=== PATIENT | female | born 1950 | race Caucasian/White ===

== ENCOUNTER 2020-11-15 16:44 | Emergency (ER) | payer MEDICARE, OTHER ==
[2020-11-15 18:41] LABS: HEMOGLOBIN 13.5 gm/dl (12.3-15.3); RED BLOOD COUNT 4.41 M/UL (4.00-5.10); WHITE BLOOD COUNT 4.6 K/UL (4.5-11.0)
[2020-11-15 18:56] LABS: BUN/CREATININE RATIO 15 (0-10)
[2020-11-15] MEDS ORDERED: KEFLEX750 MG PO (19:38)
== END 2020-11-15 19:57 | disposition home or self-care (01) ==
LOC: ER1 16:44
PROVIDERS: Family Medicine
DX: N39.0 Urinary tract infection, site not specified (principal); R41.3 Other amnesia; I10 Essential (primary) hypertension; E11.9 Type 2 diabetes mellitus without complications; Z86.73 Personal history of transient ischemic attack (TIA), and cerebral infarction without residual deficits
CPT/HCPCS: 36415; 70450; 80053; 81001; 82550; 82553; 83690; 84484; 85025; 93005; 99284

== ENCOUNTER 2020-11-19 17:45 | Emergency (ER) | payer MEDICARE, OTHER ==
[~2020-11-19 17:45] MED LIST: KEFLEX750 MG PO
[2020-11-19 19:21] LABS: HEMOGLOBIN 14.5 gm/dl (12.3-15.3); RED BLOOD COUNT 4.61 M/UL (4.00-5.10); WHITE BLOOD COUNT 5.8 K/UL (4.5-11.0)
== END 2020-11-19 20:23 | disposition home or self-care (01) ==
LOC: ER1 17:45
PROVIDERS: Preventive Medicine Occupational Medicine
DX: I63.9 Cerebral infarction, unspecified (principal); I10 Essential (primary) hypertension; E11.9 Type 2 diabetes mellitus without complications; Z20.822 Contact with and (suspected) exposure to COVID-19
CPT/HCPCS: 0240U; 80053; 85025; 99284; J7030